=== PATIENT | male | born 1945 | race Caucasian/White ===

== ENCOUNTER 2020-02-07 14:35 | Emergency (ER) | payer MEDICARE, OTHER ==
[~2020-02-07] VITALS: Ht 172.7 cm; Wt 86.4 kg
[2020-02-07] MEDS ORDERED: ASPI-556 PO (15:05)
[2020-02-07] MEDS ORDERED: CLOP75TA3 PO (15:05)
[2020-02-07] MEDS ORDERED: METO25XL PO (15:05)
[2020-02-07] MEDS ORDERED: METF-960 PO (15:05)
[2020-02-07] MEDS ORDERED: PERTUSS(ACELL),DIPH,TET VAC/PF 0.5 ML VIAL IM ONE (15:15)
[2020-02-07] MEDS ORDERED: LIDOCAINE 1% 10 ML VIAL ONE (16:05)
[2020-02-07] MEDS ORDERED: LIDOCAINE 1% 10 ML VIAL INJ ONE (16:30)
[2020-02-07 16:36] VITALS: BP 139/71
== END 2020-02-07 16:36 | disposition home or self-care (01) ==
LOC: EDBD 14:37 → EMS 14:37
DX: S51.811A Laceration without foreign body of right forearm, initial encounter (principal); S80.211A Abrasion, right knee, initial encounter; E11.9 Type 2 diabetes mellitus without complications; I11.9 Hypertensive heart disease without heart failure; E78.00 Pure hypercholesterolemia, unspecified; W01.0XXA Fall on same level from slipping, tripping and stumbling without subsequent striking against object, initial encounter; Y93.89 Activity, other specified; Y92.89 Other specified places as the place of occurrence of the external cause; Y99.8 Other external cause status
CPT/HCPCS: 12004; 82962; 90471; 90715; 99283; J3490

== ENCOUNTER 2020-02-10 10:59 | Emergency (ER) | payer MEDICARE, OTHER ==
[~2020-02-10] VITALS: Ht 172.7 cm; Wt 86.4 kg
[~2020-02-10 10:59] MED LIST: ASPI-556 PO; CLOP75TA3 PO; METF-960 PO; METO25XL PO
[2020-02-10 11:12] VITALS: BP 140/66
== END 2020-02-10 12:02 | disposition home or self-care (01) ==
LOC: EMS 11:00
DX: S51.811D Laceration without foreign body of right forearm, subsequent encounter (principal); E11.9 Type 2 diabetes mellitus without complications; I11.9 Hypertensive heart disease without heart failure; E78.00 Pure hypercholesterolemia, unspecified; X58.XXXD Exposure to other specified factors, subsequent encounter

== ENCOUNTER 2023-03-11 16:34 | Emergency (ER) | payer MEDICARE, OTHER ==
[~2023-03-11] VITALS: Ht 177.8 cm; Wt 63.0 kg
[~2023-03-11 16:34] MED LIST changes: -CLOP75TA3 PO; +CLOP75TA60 PO; +METF-1211 PO; -METF-960 PO
[2023-03-11 16:35] VITALS: PULSE 113; RESP 20; O2SAT 98
[2023-03-11] MEDS ORDERED: EPINEPHrine 1:10,000 [1 MG/10 ML] SYRINGE IVP ONE (16:36)
[2023-03-11] MEDS ORDERED: SODIUM BICARBONATE [PEDIATRIC] 8.4% 10 MEQ/10 ML SYRINGE IVP ONE (16:36)
[2023-03-11 16:46] VITALS: BP 107/66; PULSE 60; RESP 18
[2023-03-11 17:43] LABS: BASOPHILS % (AUTO) 0.7 % (0.0-2.0); EOSINOPHILS % (AUTO) 0.4 % (1.0-6.0); HEMATOCRIT 31.8 % (41-53); HEMOGLOBIN 10.5 g/dL (13.5-17.5); LYMPHOCYTES # (AUTO) 4.5 K/uL (1.0-4.8); LYMPHOCYTES % (AUTO) 25.1 % (22.0-44.0); MEAN CORPUSCULAR HEMOGLOBIN 30.1 pg (26.0-34.0); MEAN CORPUSCULAR HGB CONC 33.2 G/dL (31.0-37.0); MEAN CORPUSCULAR VOLUME 91 fL (80-100); MONOCYTES # (AUTO) 1.5 K/uL (0.1-1.0); MONOCYTES % (AUTO) 8.3 % (2.0-9.0); NEUTROPHILS # (AUTO) 11.7 K/uL (1.8-7.7); NEUTROPHILS % (AUTO) 65.5 % (40.0-70.0); PLATELET COUNT (AUTO) 265 K/uL (150-450)
[2023-03-11 17:46] LABS: ANION GAP 21 mmol/L (8-16); CALCIUM, TOTAL 8.2 mg/dL (8.8-10.5); CARBON DIOXIDE 22 mmol/L (22-29); CHLORIDE 99 mmol/L (98-107); CREATININE 1.52 mg/dL (0.60-1.30); GLOMERULAR FILTR. RATE CALC 45 mL/min (>60); GLUCOSE,RANDOM 197 mg/dL (70-110); POTASSIUM 4.8 mmol/L (3.5-5.1); SODIUM SERUM 142 mmol/L (136-145)
[2023-03-11 17:52] LABS: ALANINE AMINOTRANSFERASE 86 U/L (12-78); ALBUMIN 2.2 g/dL (3.4-5.0); ALKALINE PHOSPHATASE 89 U/L (46-116); ASPARTATE AMINOTRANSFERASE 128 U/L (15-37); BILIRUBIN,TOTAL 1.8 mg/dL (0.1-1.0); LIPASE 53 U/L (73-393); TOTAL PROTEIN, SERUM 5.7 g/dL (6.4-8.2)
[2023-03-11 17:55] LABS: B-TYPE NATRIURETIC PEPTIDE 581 pg/mL (0-100)
[2023-03-11 17:58] LABS: LACTIC ACID 13.7 mmol/L (0.4-2.0)
== END 2023-03-11 18:18 ==
LOC: EMS 16:35
DX: I46.9 Cardiac arrest, cause unspecified (principal); E11.9 Type 2 diabetes mellitus without complications; E78.00 Pure hypercholesterolemia, unspecified; I10 Essential (primary) hypertension; I51.9 Heart disease, unspecified
CPT/HCPCS: 99291; 92950; 31500; 80053; 83605; 83690; 83880; 84484; 85025; 93005; J0171; J3490; 51702; 94002